=== PATIENT | male | born 2000 | race Hispanic/Latino ===

== ENCOUNTER 2021-09-14 22:33 | Emergency (ER) | payer OTHER ==
[~2021-09-14] VITALS: Ht 177.8 cm; Wt 81.0 kg
[2021-09-15] MEDS ORDERED: NS 1,000 ML IV ONE (07:25)
[2021-09-15 07:49] LABS: BASO # 0.1 10^3/uL (0.0-0.2); BASO % 0.8 % (0.0-1.0); EOS # 0.2 10^3/uL (0.0-0.5); EOS % 2.8 % (0.0-3.0); HEMATOCRIT 47.8 % (42.0-52.0); HEMOGLOBIN 15.8 g/dl (13.5-17.5); LYMPH # 2.1 10^3/uL (1.5-5.0); LYMPH % 26.3 % (24.0-44.0); MEAN CORPUSCULAR HEMOGLOBIN 28.3 pg (27.0-33.0); MEAN CORPUSCULAR HGB CONC 33.1 g/dl (32.0-36.5); MEAN CORPUSCULAR VOLUME 85.5 fl (80.0-96.0); MONO # 0.9 10^3/uL (0.0-0.8); NEUTROPHILS # 4.6 10^3/uL (1.5-8.5); NEUTROPHILS % 58.7 % (36.0-66.0); PLATELET COUNT, AUTOMATED 232 10^3/uL (150-450); RED BLOOD COUNT 5.59 10^6/uL (4.30-6.10); WHITE BLOOD COUNT 7.8 10^3/uL (4.0-10.0)
[2021-09-15] MEDS ORDERED: ISOVUE-370 76% 100ML VIAL As Ordered ONE (07:53)
[2021-09-15 08:21] LABS: BILIRUBIN,DIRECT 0.2 MG/DL (0.0-0.2); BILIRUBIN,TOTAL 0.6 MG/DL (0.2-1.0); TOTAL PROTEIN 7.3 GM/DL (6.4-8.2)
--- NOTE | 2021-09-15 08:30 | REP ---
INDICATION: Hemoptysis COMPARISON: None. TECHNIQUE: PA/Lateral FINDINGS: Lungs: Clear, no infiltrate. Heart: Normal in size. Mediastinum: Mediastinal silhouette unremarkable. Pleural angles: Unremarkable.. Bones and soft tissues: Unremarkable. IMPRESSION: No acute pulmonary disease. <Electronically signed by Roshan Medina > 09/15/21 [id number]
--- NOTE | 2021-09-15 08:59 | REP ---
INDICATION: R/O appendicitis COMPARISON: None. TECHNIQUE: CT Scan of the abdomen and pelvis was performed with intravenous administration of 100 cc of Isovue 370, without oral contrast. Sagittal and coronal reconstruction images are performed. FINDINGS: Lung bases: Unremarkable. Liver: Normal Gallbladder: Unremarkable. Spleen: Normal. Adrenals: Normal. Pancreas: Normal. Kidneys: Normal. Small and large bowel: Unremarkable. Free fluid: None. Abdominal aorta: No aneurysm or dissection. Adenopathy: None. Appendix: Not inflamed. Osseous structures: Unremarkable. Pelvis: No mass. IMPRESSION: Negative CT abdomen and pelvis. <Electronically signed by Roshan Medina > 09/15/21 [id number]
[2021-09-15 09:24] VITALS: BP 120/72
[2021-09-15 09:53] LABS: RSV AMPLIFICATION NEGATIVE (NEGATIVE)
[2021-09-15] MEDS ORDERED: ZOFR4TAB16 PO (09:54)
== END 2021-09-15 10:15 | disposition home or self-care (01) ==
LOC: M ED 22:33
DX: J02.9 Acute pharyngitis, unspecified (principal); R10.9 Unspecified abdominal pain; R11.10 Vomiting, unspecified; R19.7 Diarrhea, unspecified; F17.290 Nicotine dependence, other tobacco product, uncomplicated; Z86.19 Personal history of other infectious and parasitic diseases; Z83.3 Family history of diabetes mellitus; Z82.49 Family history of ischemic heart disease and other diseases of the circulatory system; Z80.9 Family history of malignant neoplasm, unspecified
CPT/HCPCS: 71046; 74177; 80047; 80076; 83605; 83690; 85025; 86850; 86900; 86901; 87631; 87880; 93041; 96360; 96361; 99284; Q9967

== ENCOUNTER → 2024-08-17 | Outpatient (REF) ==
[~2024-08-17] MED LIST: ZOFR4TAB16 PO
== END ==
LOC: M PLAIMG 09:48
PROVIDERS: ATTEND Internal Medicine
DX: R52 Pain, unspecified (principal)